=== PATIENT | male | born 1975 | race Caucasian/White ===

== ENCOUNTER 2018-11-05 23:38 | Emergency (ER) | payer OTHER ==
[2018-11-06] MEDS: Proparacaine 0.5% Ophth Soln 15 ML Bottle EYELF ONE (00:03)
--- NOTE | 2018-11-06 00:45 | EDM.PDOC ---
ED HPI GENERAL MEDICAL PROBLEM - General Chief Complaint: Eye Problems Stated Complaint: PIECE OF METAL IN LEFT EYE Time Seen by Provider: 11/06/18 00:05 Source of Information: Reports: Patient History Limitations: Reports: No Limitations - History of Present Illness INITIAL COMMENTS - FREE TEXT/NARRATIVE: 43-year-old male with a foreign body in his left eye for the past 9 hours. It's a piece of metal, it occurred while he was grinding. He got one piece out but another one is persistent, it feels like it's under his left eyelid. No visual complaints, but his eye is very watery. 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 (see below) Other Treatments PLUG MAKING OPERATOR: eye flush Left Eye Pain Score (Numeric/FACES): 8 - Related Data Allergies Allergy/AdvReac Type Severity Reaction Status Date / Time Penicillins Allergy Rash Verified 11/06/18 00:00 Home Meds: Home Meds NK [No Known Home Meds] 11/06/18 [History] Social & Family History - Tobacco Use Smoking Status *Q: Never Smoker Second Hand Smoke Exposure: No - Caffeine Use Caffeine Use: Reports: Soda - Recreational Drug Use Recreational Drug Use: No ED ROS GENERAL - Review of Systems Review Of Systems: See Below Constitutional: Denies: Fever, Chills Respiratory: Denies: Shortness of Breath GI/Abdominal: Denies: Abdominal Pain Skin: Reports: No Symptoms Neurological: Reports: No Symptoms. Denies: Headache ED EXAM GENERAL W FULL EYE - Physical Exam Exam: See Below Exam Limited By: No Limitations General Appearance: Alert, No Apparent Distress (patient is uncomfortable but not distressed) Eyelids: Right: Lid Everted for Exam (no foreign body seen), Left: Edema, Erythema Conjunctiva & Sclera: Left: Foreign Body (foreign body is seen in the center of the left cornea over the pupil) Extraocular Movements: Bilateral: Intact Head: Atraumatic Respiratory/Chest: No Respiratory Distress Course - Vital Signs Last Recorded V/S: Last Vital Signs Temp 96.7 F 11/06/18 00:07 Pulse 76 11/06/18 00:07 Resp 12 11/06/18 00:07 BP 125/84 11/06/18 00:07 Pulse Ox 98 11/06/18 00:07 - Orders/Labs/Meds Meds: Medications Discontinued Medications Generic Name Dose Route Start Last Admin Trade Name Zulma PRN Reason Stop Dose Admin Proparacaine HCl 1 ml 11/05/18 23:51 11/06/18 00:03 Proparacaine 0.5% Ophth Soln EYELF 11/05/18 23:52 1 ml ONETIME ONE Administration - Re-Assessments/Exams Free Text/Narrative Re-Assessment/Exam: 11/06/18 00:43 Proparacaine eye drops were placed in the eye which gave him good relief. Prepared him to be examined by the slit lamp but the slit lamp was broken. Using magnifying glasses, a small metal foreign body was identified in the middle of the cornea over the pupil, and it was removed carefully with a tip of an 18-gauge needle. The foreign body was identified on the Q-tip after removal. Patient was continued on gentamicin ointment for the next 3 days, and needs an ophthalmology or optometry recheck on Wednesday. Without a slit-lamp it's impossible to know if all the foreign body was removed. Departure - Departure Time of Disposition: 00:54 Disposition: Home, Self-Care 01 Condition: Good Clinical Impression: Foreign body of left cornea Qualifiers: Encounter type: initial encounter Qualified Code(s): T15.02XA - Foreign body in cornea, left eye, initial encounter - Discharge Information Instructions: Eye Foreign Body Referrals: PCP,None [Primary Care Provider] - Forms: ED Department Discharge Care Plan Goals: Use ointment in the left eye 3 times a day as prescribed for the next 3-5 days. It's very important to be rechecked on Wednesday if not improving satisfactorily, and recheck sooner if worsening despite treatment.
== END 2018-11-06 00:50 | disposition home or self-care (01) ==
LOC: JP.ED 23:38
DX: T15.02XA Foreign body in cornea, left eye, initial encounter (principal); X58.XXXA Exposure to other specified factors, initial encounter; Z88.0 Allergy status to penicillin
CPT/HCPCS: 65220; 99283; A9270

== ENCOUNTER 2018-11-13 13:31 | Emergency (ER) | payer OTHER ==
[2018-11-13] MEDS ORDERED: Bacitracin Oint 1 GM U/D Packet TOP ONE (13:50)
[2018-11-13] MEDS ORDERED: Diphtheria,Pertussis(Acell),Tetanus Vaccine 0.5 ML SDV IM ONE (13:50)
--- NOTE | 2018-11-13 13:52 | EDM.PDOC ---
ED HPI GENERAL MEDICAL PROBLEM - General Chief Complaint: Laceration Stated Complaint: CUT FINGER ON LEFT HAND Time Seen by Provider: 11/13/18 13:48 Source of Information: Reports: Patient, Family, RN Notes Reviewed History Limitations: Reports: No Limitations - History of Present Illness INITIAL COMMENTS - FREE TEXT/NARRATIVE: 43-year-old gentleman presents emergency department today with laceration distal tip digit #2 left hand he injured this on a table saw, no functional complaints Left Finger-Index Pain Score (Numeric/FACES): 7 - Related Data Allergies Allergy/AdvReac Type Severity Reaction Status Date / Time Penicillins Allergy Rash Verified 11/13/18 13:42 Home Meds: Home Meds NK [No Known Home Meds] 11/06/18 [History] Past Medical History - Past Health History Medical/Surgical History: Denies Medical/Surgical History Social & Family History - Tobacco Use Smoking Status *Q: Current Every Day Smoker Years of Tobacco use: 20 Packs/Tins Daily: 0.5 - Caffeine Use Caffeine Use: Reports: Soda ED ROS GENERAL - Review of Systems Review Of Systems: See Below Constitutional: Reports: No Symptoms Musculoskeletal: Reports: Hand Pain Skin: Reports: Wound Neurological: Reports: No Symptoms ED EXAM, SKIN/RASH Exam: See Below Text/Narrative:: 2 cm laceration distal tip palmar surface digit #2 completely through the dermis into the subcutaneous tissue full range of motion of all digits radial pulses +2 sensation is intact Exam Limited By: No Limitations General Appearance: Alert, WD/WN, No Apparent Distress ED SKIN PROCEDURES - Laceration/Wound Repair Left Digit - 2nd (Index) Lac/Wound length In cm: 2.5 Appearance: Subcutaneous, Muscle, Irregular Distal NVT: Neuro & Vascular Intact, No Tendon Injury Anesthetic Type: Digital Local Anesthesia - Lidocaine (Xylocaine): 1% Plain Local Anesthetic Volume: 5cc Skin Prep: Saline Saline Irrigation (cc's): 60 Exploration/Debridement/Repair: Wound Explored, In a Bloodless Field, Explored to Base Closed with: Sutures Suture Size: 4-0 # of Sutures: 3 Suture Type: Nylon, Interrupted Sterile Dressing Applied: Nurse Tetanus Status Addressed: Yes (today) Complications: No Course - Vital Signs Last Recorded V/S: Last Vital Signs Temp 98.1 F 11/13/18 13:45 Pulse 75 11/13/18 13:45 Resp 14 11/13/18 13:45 BP 134/90 11/13/18 13:45 Pulse Ox 96 11/13/18 13:45 - Orders/Labs/Meds Orders: Active Orders 24 hr Category Date Time Status Vaccines to be Administered [RC] PER UNIT ROUTINE Care 11/13/18 13:50 Active Fingers Second Digit Lt F1 [CR] Stat Exams 11/13/18 13:50 Taken Meds: Medications Discontinued Medications Generic Name Dose Route Start Last Admin Trade Name Zulma PRN Reason Stop Dose Admin Bacitracin 1 dose 11/13/18 13:50 11/13/18 13:57 Bacitracin Oint 1 Gm TOP 11/13/18 13:51 1 dose ONETIME ONE Administration Diphtheria/Tetanus/Acell Pertussis 0.5 ml 11/13/18 13:50 11/13/18 13:57 Adacel IM 11/13/18 13:51 0.5 ml .ONCE ONE Administration Lidocaine HCl 5 ml 11/13/18 13:50 11/13/18 13:57 Xylocaine-Mpf 1% INJECT 11/13/18 13:51 5 ml ONETIME ONE Administration Departure - Departure Time of Disposition: 14:58 Disposition: Home, Self-Care 01 Condition: Fair Clinical Impression: Laceration of finger of left hand Qualifiers: Encounter type: initial encounter Finger: index finger Damage to nail status: without damage Foreign body presence: without foreign body Qualified Code(s): S61.211A - Laceration without foreign body of left index finger without damage to nail, initial encounter - Discharge Information Referrals: PCP,None [Primary Care Provider] - Forms: ED Department Discharge Additional Instructions: Suture removal in 10 days follow-up with primary care return to emergency Department follow wound care instruction sheet - My Orders Last 24 Hours: My Active Orders 11/13/18 13:50 Vaccines to be Administered [RC] PER UNIT ROUTINE Fingers Second Digit Lt F1 [CR] Stat - Assessment/Plan Last 24 Hours: My Active Orders 11/13/18 13:50 Vaccines to be Administered [RC] PER UNIT ROUTINE Fingers Second Digit Lt F1 [CR] Stat Plan: Assessment Acuity = acute Site and laterality = 2.5 cm laceration distal tip of digit #2 left hand Etiology = secondary to trauma Manifestations = none Location of injury = Home Lab values = finger x-ray I did review films myself I cannot appreciate any acute process, the official read from radiology is pending Plan Keflex 500 mg by mouth twice a day 7 days, Tylenol and Motrin as needed for pain control suturable in 10 days follow-up primary care return to emergency. This note was dictated using [employer] voice recognition software please call with any questions on syntax or grammar.
--- NOTE | 2018-11-13 15:21 | CRLCR ---
HISTORY: Saw injury. TECHNIQUE: Three views of the 2nd digit left hand. COMPARISON: No prior. FINDINGS: Irregularity of the soft tissues of the index finger compatible with soft tissue injury. There is a small soft tissue gas which tracks to the head of the proximal phalangeal level. There is no radiopaque foreign body. No acute fracture or malalignment. Joint spaces appear maintained. IMPRESSION: 1. No acute fracture. 2. Soft tissue gas. 3. No malalignment. Dictated by Conrado Reynoso MD @ 11/13/2018 3:18:49 PM Dictated by: Conrado Reynoso MD @ 11/13/2018 15:18:54 (Electronically Signed)
== END 2018-11-13 15:12 | disposition home or self-care (01) ==
LOC: JP.ED 13:31
DX: S61.211A Laceration without foreign body of left index finger without damage to nail, initial encounter (principal); F17.210 Nicotine dependence, cigarettes, uncomplicated; W31.2XXA Contact with powered woodworking and forming machines, initial encounter; Z23 Encounter for immunization; Z88.0 Allergy status to penicillin
CPT/HCPCS: 12001; 73140; 90471; 90715; 99282; J2001